=== PATIENT | female | born 1975 | race Two or more races ===

== ENCOUNTER → 2017-10-04 | Outpatient (CLI) | payer OTHER ==
[~2017-10-04] MED LIST: FOLI1TAB47 PO; IBUP-1484 PO; OMEP-110 PO
== END | disposition home or self-care (01) ==
LOC: CFH 12:14
PROVIDERS: ATTEND Surgery
DX: N63.11 Unspecified lump in the right breast, upper outer quadrant (principal)
CPT/HCPCS: 76641; G0204

== ENCOUNTER → 2017-11-01 | Outpatient (CLI) | payer OTHER | LOC: STAR 10:03 | PROVIDERS: ATTEND Surgery | DX: Z02.9 Encounter for administrative examinations, unspecified (principal) ==

== ENCOUNTER 2017-11-06 10:36 | Day surgery (SDC) | payer OTHER ==
[~2017-11-06] VITALS: Ht 149.9 cm; Wt 53.9 kg
[2017-11-06] MEDS ORDERED: FENTANYL PF 100 MCG/2ML ONE (12:08)
[2017-11-06] MEDS ORDERED: MIDAZOLAM 1 MG/ML, 2ML ONE (12:08)
[2017-11-06] MEDS ORDERED: LIDOCAINE 1%, 2ML ONE (12:14)
[2017-11-06] MEDS ORDERED: LACTATED RINGERS 1,000 ML IV SCH (12:15)
[2017-11-06] MEDS ORDERED: LIDOCAINE 1%, 20ML ONE (12:18)
[2017-11-06 12:19] VITALS: BP 134/89
[2017-11-06] MEDS ORDERED: LIDOCAINE 1%, 2ML SQ PRN (12:30)
[2017-11-06] MEDS ORDERED: BUPIVACAINE/PF 0.25% ONE (12:40)
[2017-11-06 12:57] LABS: HCG UR SG 1.012 (1.003-1.030)
[2017-11-06] MEDS ORDERED: CEFAZOLIN 1,000 MG ONE (13:26)
[2017-11-06] MEDS ORDERED: KETOROLAC 30 MG/1 ML ONE (13:26)
[2017-11-06] MEDS ORDERED: PROPOFOL 10 MG/ML, 20ML ONE (13:26)
[2017-11-06] MEDS ORDERED: ONDANSETRON 2MG/ML, 2ML ONE (13:26)
[2017-11-06] MEDS ORDERED: DEXAMETHASONE 4 MG/ML, 1ML ONE (13:26)
[2017-11-06] MEDS ORDERED: PROMETHAZINE 25 MG/ML, 1ML IV PRN (14:00)
[2017-11-06] MEDS ORDERED: LABETALOL 5MG/ML, 20ML IV PRN (14:00)
[2017-11-06] MEDS ORDERED: HYDROcodone/APAP 7.5-325MG/15ML UDC PO PRN (14:00)
[2017-11-06] MEDS ORDERED: HYDROmorphone 1 MG/ML, 1ML IV PRN (14:00)
[2017-11-06] MEDS ORDERED: OXYcodone 5 MG/5 ML ORAL.SOL UDC PO PRN (14:00)
[2017-11-06] MEDS ORDERED: ALBUTEROL SULFATE 2.5 MG/3 ML NPPB PRN (14:00)
[2017-11-06] MEDS ORDERED: MEPERIDINE/PF 25MG/0.5ML IVPush PRN (14:00)
[2017-11-06] MEDS ORDERED: ACETAMINOPHEN 325 MG TABLET PO PRN (14:00)
[2017-11-06] MEDS ORDERED: hydrALAzine 20 MG/ML, 1ML IV PRN (14:00)
[2017-11-06] MEDS ORDERED: DIAZEPAM 5 MG/ML, 2ML IVPush PRN (14:00)
[2017-11-06] MEDS ORDERED: ONDANSETRON 2MG/ML, 2ML IVPush PRN (14:00)
[2017-11-06] MEDS ORDERED: MIDAZOLAM 1 MG/ML, 2ML IV PRN (14:00)
[2017-11-06] MEDS ORDERED: EPHEDRINE 50 MG/ML, 1ML IVPush PRN (14:00)
[2017-11-06] MEDS ORDERED: METOPROLOL 1 MG/ML, 5ML IV PRN (14:00)
[2017-11-06] MEDS ORDERED: FENTANYL PF 100 MCG/2ML IV PRN (14:00)
[2017-11-06] MEDS ORDERED: OXYcodone 5 MG/5 ML ORAL.SOL UDC ONE (14:31)
[2017-11-06] MEDS ORDERED: ACETAMINOPHEN 650 MG/20.3 ML UDC ONE (14:31)
[2017-11-06] MEDS ORDERED: OXYcodone IR 5MG TABLET PO PRN (16:00)
== END 2017-11-06 17:00 ==
LOC: OR 10:36 → OUT 17:00
PROVIDERS: ATTEND Surgery
DX: D24.1 Benign neoplasm of right breast (principal)
CPT/HCPCS: 19125; 19281; 81025; 88307; J0690; J1100; J1885; J2250; J2405; J2704; J3010; J3490; J7120

== ENCOUNTER → 2020-03-01 | Outpatient (CLI) | payer OTHER ==
[~2020-03-01] MED LIST changes: -IBUP-1484 PO; +IBUP-1902 PO; +OMNIPAQUE 350 MG/ML, 100ML BOTTLE ONE
== END | disposition home or self-care (01) ==
LOC: CFH 08:12
PROVIDERS: ATTEND Internal Medicine Hematology & Oncology
DX: R59.0 Localized enlarged lymph nodes (principal); D72.820 Lymphocytosis (symptomatic); D73.89 Other diseases of spleen
CPT/HCPCS: 71260; 74177; Q9967

== ENCOUNTER → 2020-04-02 | Outpatient (CLI) | payer OTHER ==
[~2020-04-02] MED LIST changes: -OMNIPAQUE 350 MG/ML, 100ML BOTTLE ONE
== END | disposition home or self-care (01) ==
LOC: PETCFH 07:53
PROVIDERS: ATTEND Internal Medicine Hematology & Oncology
DX: C79.51 Secondary malignant neoplasm of bone (principal); R59.0 Localized enlarged lymph nodes; R16.2 Hepatomegaly with splenomegaly, not elsewhere classified; D72.820 Lymphocytosis (symptomatic)
CPT/HCPCS: 78815; A9552

== ENCOUNTER 2020-04-29 08:11 | Outpatient (CLI) | payer OTHER | END 2020-04-29 23:59 | disposition home or self-care (01) | LOC: STAR 08:11 | PROVIDERS: ATTEND Surgery | DX: Z02.9 Encounter for administrative examinations, unspecified (principal) ==

== ENCOUNTER → 2020-04-29 | Outpatient (CLI) | payer OTHER | END | disposition home or self-care (01) | LOC: CFH 10:11 | PROVIDERS: ATTEND Internal Medicine Hematology & Oncology | DX: D72.820 Lymphocytosis (symptomatic) (principal); R59.0 Localized enlarged lymph nodes ==

== ENCOUNTER 2020-05-03 10:37 | Day surgery (SDC) | payer OTHER ==
[~2020-05-03] VITALS: Ht 149.9 cm; Wt 55.8 kg
[~2020-05-03 10:37] MED LIST changes: +BUPIVACAINE/PF-EPI 0.5% 1:200K ONE; +EPHEDRINE 50 MG/ML, 1ML IVPush PRN; +FENTANYL PF 100 MCG/2ML IV PRN; +HYDROmorphone 1 MG/ML, 1ML INJ IVPush PRN; +LABETALOL 5MG/ML, 20ML IV PRN; +ONDANSETRON 2MG/ML, 2ML IVPush PRN; +OXYcodone 5 MG/5 ML ORAL.SOL UDC PO PRN; +PROMETHAZINE 25 MG/ML, 1ML IVPush PRN; +hydrALAzine 20 MG/ML, 1ML IV PRN
[2020-05-03] MEDS ORDERED: LACTATED RINGERS 1,000 ML IV SCH (10:46)
[2020-05-03 10:52] VITALS: BP 135/87
[2020-05-03] MEDS ORDERED: CHLORHEXIDINE 15 ML UDC MM ONE (11:00)
[2020-05-03] MEDS ORDERED: ACET325T14 PO (11:09)
[2020-05-03] MEDS ORDERED: MULT-658 PO (11:09)
[2020-05-03 11:17] LABS: HCG UR SG 1.017 (1.003-1.030)
[2020-05-03] MEDS ORDERED: ACETAMINOPHEN 500 MG TABLET PO ONE (11:30)
[2020-05-03] MEDS ORDERED: FENTANYL PF 100 MCG/2ML ONE (11:55)
[2020-05-03] MEDS ORDERED: MIDAZOLAM 1 MG/ML, 2ML ONE (11:55)
[2020-05-03] MEDS ORDERED: DEXAMETHASONE 4 MG/ML, 1ML ONE (12:49)
[2020-05-03] MEDS ORDERED: SUCCINYLCHOLINE 20 MG/ML, 10ML ONE (12:49)
[2020-05-03] MEDS ORDERED: PROPOFOL 10 MG/ML, 20ML ONE (12:49)
[2020-05-03] MEDS ORDERED: ONDANSETRON 2MG/ML, 2ML ONE (12:49)
[2020-05-03] MEDS ORDERED: LIDOCAINE-MPF 2% ,5ML ONE (12:54)
[2020-05-03] MEDS ORDERED: KETOROLAC 30 MG/1 ML ONE (12:54)
[2020-05-03] MEDS ORDERED: BUPIVACAINE/PF-EPI 0.5% 1:200K INFIL ONE (13:08)
[2020-05-03] MEDS ORDERED: OXYcodone 5 MG/5 ML ORAL.SOL UDC ONE (14:14)
== END 2020-05-03 16:15 | disposition home or self-care (01) ==
LOC: OUT 10:37
PROVIDERS: ATTEND Surgery
DX: R59.1 Generalized enlarged lymph nodes (principal); Z11.59 Encounter for screening for other viral diseases; C85.11 Unspecified B-cell lymphoma, lymph nodes of head, face, and neck; Z79.1 Long term (current) use of non-steroidal anti-inflammatories (NSAID); Z83.3 Family history of diabetes mellitus
CPT/HCPCS: 36415; 38500; 81025; 87635; 88305; 88333; 88341; 88342; J1100; J1885; J2250; J2405; J2704; J3010; J7120; J0330

== ENCOUNTER 2020-06-03 07:32 | Day surgery (SDC) | payer OTHER ==
[~2020-06-03] VITALS: Ht 149.9 cm; Wt 54.4 kg
[~2020-06-03 07:32] MED LIST changes: +ACET325T14 PO; -BUPIVACAINE/PF-EPI 0.5% 1:200K ONE; -EPHEDRINE 50 MG/ML, 1ML IVPush PRN; -FENTANYL PF 100 MCG/2ML IV PRN; -HYDROmorphone 1 MG/ML, 1ML INJ IVPush PRN; -LABETALOL 5MG/ML, 20ML IV PRN; +MULT-658 PO; -ONDANSETRON 2MG/ML, 2ML IVPush PRN; -OXYcodone 5 MG/5 ML ORAL.SOL UDC PO PRN; -PROMETHAZINE 25 MG/ML, 1ML IVPush PRN; -hydrALAzine 20 MG/ML, 1ML IV PRN
[2020-06-03] MEDS ORDERED: SODIUM CHLORIDE 0.9% 1,000 ML IV ONE (07:51)
[2020-06-03] MEDS ORDERED: CEFAZOLIN PMX 1GM/50ML 50 ML IV STA (07:51)
[2020-06-03 07:57] VITALS: BP 125/88
[2020-06-03] MEDS ORDERED: LIDOCAINE 1%, 20ML ONE (09:59)
[2020-06-03] MEDS ORDERED: LIDOCAINE 1%, 10ML ONE (09:59)
[2020-06-03] MEDS ORDERED: FLUMAZENIL 0.1 MG/1 ML, 5ML ONE (10:13)
[2020-06-03] MEDS ORDERED: MIDAZOLAM 1 MG/ML, 5ML ONE (10:13)
[2020-06-03] MEDS ORDERED: FENTANYL PF 100 MCG/2ML ONE (10:13)
[2020-06-03] MEDS ORDERED: NALOXONE 1 MG/ML, 2ML ONE (10:13)
== END 2020-06-03 12:55 | disposition home or self-care (01) ==
LOC: OUT 07:32
PROVIDERS: ATTEND Internal Medicine Hematology & Oncology
DX: C81.08 Nodular lymphocyte predominant Hodgkin lymphoma, lymph nodes of multiple sites (principal); Z80.1 Family history of malignant neoplasm of trachea, bronchus and lung
CPT/HCPCS: 36561; 76937; 77001; 99156; 99157; C1788; C1894; J0690; J1642; J2250; J3010; J7030; J2310

== ENCOUNTER 2020-11-23 07:05 | Day surgery (SDC) | payer OTHER ==
[~2020-11-23] VITALS: Ht 149.9 cm; Wt 48.5 kg
[2020-11-23 07:40] VITALS: BP 119/87
[2020-11-23] MEDS ORDERED: none per pt (07:54)
[2020-11-23] MEDS ORDERED: SODIUM CHLORIDE 0.9% 1,000 ML IV SCH (08:00)
[2020-11-23] MEDS ORDERED: LIDOCAINE 1%, 20ML ONE (08:17)
[2020-11-23] MEDS ORDERED: FLUMAZENIL 0.1 MG/1 ML, 5ML ONE (08:33)
[2020-11-23] MEDS ORDERED: FENTANYL PF 100 MCG/2ML ONE (08:33)
[2020-11-23] MEDS ORDERED: NALOXONE 1 MG/ML, 2ML ONE (08:33)
[2020-11-23] MEDS ORDERED: MIDAZOLAM 1 MG/ML, 5ML ONE (08:33)
== END 2020-11-23 10:50 | disposition home or self-care (01) ==
LOC: OUT 07:05 → EDSTATUS 09:00 → OUT 10:50
PROVIDERS: ATTEND Internal Medicine Hematology & Oncology
DX: Z45.2 Encounter for adjustment and management of vascular access device (principal); C81.08 Nodular lymphocyte predominant Hodgkin lymphoma, lymph nodes of multiple sites; F41.9 Anxiety disorder, unspecified; Z79.899 Other long term (current) drug therapy; Z83.3 Family history of diabetes mellitus; Z82.49 Family history of ischemic heart disease and other diseases of the circulatory system
CPT/HCPCS: 36590; 77001; 99156; 99157; J2250; J3010; J7030; J2310

== ENCOUNTER → 2021-02-03 | Outpatient (CLI) | payer OTHER ==
[~2021-02-03] MED LIST changes: +none per pt
== END | disposition home or self-care (01) ==
LOC: CFH 11:11
PROVIDERS: ATTEND Internal Medicine Hematology & Oncology
DX: Z51.11 Encounter for antineoplastic chemotherapy (principal); Z51.12 Encounter for antineoplastic immunotherapy; M70.72 Other bursitis of hip, left hip; M70.71 Other bursitis of hip, right hip; C81.08 Nodular lymphocyte predominant Hodgkin lymphoma, lymph nodes of multiple sites; R59.0 Localized enlarged lymph nodes; D72.820 Lymphocytosis (symptomatic); R11.2 Nausea with vomiting, unspecified; Z79.899 Other long term (current) drug therapy
CPT/HCPCS: 73523